=== PATIENT | male | born 1965 | race African-American/Black ===

== ENCOUNTER 2017-04-06 10:15 | Emergency (ER) | payer OTHER ==
[~2017-04-06] VITALS: Ht 175.3 cm; Wt 77.3 kg
[~2017-04-06 10:15] MED LIST: BACL10TA PO; DOXE100 PO; HYDR-3965 PO; LOSA50TA37 PO; RIFA300 PO
[2017-04-06] MEDS ORDERED: KETOROLAC TROMETHAMINE 10 MG TABLET PO ONE (12:15)
[2017-04-06 12:30] VITALS: BP 138/88
== END 2017-04-06 12:57 | disposition home or self-care (01) ==
LOC: EMS 10:16
DX: S43.402A Unspecified sprain of left shoulder joint, initial encounter (principal); I10 Essential (primary) hypertension; F17.210 Nicotine dependence, cigarettes, uncomplicated; Z99.3 Dependence on wheelchair; Z88.1 Allergy status to other antibiotic agents; Z88.2 Allergy status to sulfonamides; W05.0XXA Fall from non-moving wheelchair, initial encounter; Y93.89 Activity, other specified; Y92.89 Other specified places as the place of occurrence of the external cause; Y99.8 Other external cause status
CPT/HCPCS: 99284

== ENCOUNTER 2021-07-20 21:29 | Emergency (ER) | payer OTHER ==
[~2021-07-20] VITALS: Ht 177.8 cm; Wt 63.6 kg
[~2021-07-20 21:29] MED LIST changes: -DOXE100 PO; +DOXE100C30 PO; -HYDR-3965 PO; +HYDR-4723 PO; +LOSA-382 PO; -LOSA50TA37 PO
[2021-07-21 06:45] VITALS: BP 135/86
== END 2021-07-21 07:00 | disposition home or self-care (01) ==
LOC: EMS 21:34
DX: Z48.00 Encounter for change or removal of nonsurgical wound dressing (principal); I10 Essential (primary) hypertension; G82.20 Paraplegia, unspecified; L89.159 Pressure ulcer of sacral region, unspecified stage; Z99.3 Dependence on wheelchair; Z87.898 Personal history of other specified conditions; Z93.3 Colostomy status; Z98.890 Other specified postprocedural states; Z88.1 Allergy status to other antibiotic agents
CPT/HCPCS: 99281; Z7502